=== PATIENT | female | born 1975 | race Two or more races ===

== ENCOUNTER 2020-01-25 20:49 | Emergency (ER) | payer OTHER ==
[~2020-01-25] VITALS: Ht 160 cm; Wt 76.5 kg
[2020-01-25 20:55] VITALS: BP 132/81
--- NOTE | 2020-01-25 21:12 | NUR ---
BREAK RN: PT TO ED POST LEFT THIRD FINGER LAB FROM [place]. PT REPORTS SCAL[place] CONTAMINATED WITH BLOOD AT WORK. REPORTS WITHIN X1 HOUR, BLEEDING CONTROLLED.
[2020-01-25] MEDS ORDERED: DIPH,PERTUSS(ACELL),TET VAC/PF 0.5 ML IM-VACC ONE ×2 (21:23→21:30)
[2020-01-25] MEDS ORDERED: NEOSPORIN OINT. PKT 1 PACKET ONE (21:28)
--- NOTE | 2020-01-25 21:38 | NUR ---
Lab at bedside for draw.
--- NOTE | 2020-01-25 22:17 | NUR ---
At time of d/c, pt alert, oriented and in NAD. Pteducated on follow-up and S/Sx to return. Pt VU. Pt ambulatory out of room.
== END 2020-01-25 22:19 | disposition home or self-care (01) ==
LOC: ED 21:00
DX: S61.213A Laceration without foreign body of left middle finger without damage to nail, initial encounter (principal); W46.0XXA Contact with hypodermic needle, initial encounter; Y93.89 Activity, other specified; Y92.69 Other specified industrial and construction area as the place of occurrence of the external cause; Y99.8 Other external cause status
CPT/HCPCS: 36415; 86705; 86706; 86803; 87340; 87806; 90471; 90715; 99283; G0475